=== PATIENT | female | born 1945 | race Caucasian/White ===

== ENCOUNTER 2021-12-23 16:00 | Outpatient (RCR) | payer MEDICAID ==
[~2021-12-23 16:00] MED LIST: ASPIRIN E.C. 8181 MG PO; CEPHALEXIN500 M1 PO; EVENING PRIMRO500 MG PO; FOSAMAX 70MG TA70 MG PO; GLUCOSAMIN 500 PO; LIPITOR20 MG PO; MICARDIS40 MG PO; NATURAL E400 IU PO; NEURONTIN300 MG/CAP PO; NORVASC 10MG10 MG PO; OMEGA-3 FISH1000 MG PO
== END 2021-12-28 ==
LOC: MKS.ESL.OT
DX: G81.94 Hemiplegia, unspecified affecting left nondominant side (principal)

== ENCOUNTER 2022-01-21 15:45 | Outpatient (RCR) | payer MEDICAID | END 2022-01-27 | LOC: MKS.ESL.OT | DX: I69.354 Hemiplegia and hemiparesis following cerebral infarction affecting left non-dominant side (principal) ==

== ENCOUNTER → 2022-01-21 | Outpatient (CLI) | payer MEDICAID | LOC: COL.RAD 13:12 | DX: I63.9 Cerebral infarction, unspecified (principal); R13.10 Dysphagia, unspecified ==

== ENCOUNTER 2022-02-25 14:30 | Outpatient (RCR) | payer MEDICAID | END 2022-02-27 | LOC: MKS.ESL.PT | DX: I69.354 Hemiplegia and hemiparesis following cerebral infarction affecting left non-dominant side (principal) ==

== ENCOUNTER → 2022-03-30 | Outpatient (RCR) | payer MEDICAID | LOC: MKS.ESL.PT → MKS.ESL.OT 03-04 15:15 → MKS.ESL.PT 03-11 15:15 → MKS.ESL.OT 03-25 15:30 → MKS.ESL.PT 16:00 | DX: G81.94 Hemiplegia, unspecified affecting left nondominant side (principal) | CPT/HCPCS: G0283-GP ==